=== PATIENT | female | born 1990 | race African-American/Black ===

== ENCOUNTER 2018-01-24 22:36 | Emergency (ER) | payer OTHER ==
[~2018-01-24] VITALS: Ht 160 cm; Wt 54.4 kg
--- NOTE | ~2018-01-24 | EKG ---
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
[~2018-01-24 22:36] MED LIST: MOBIC15 MG PO
[2018-01-24 23:48] LABS: URINE BILIRUBIN NEGATIVE (Negative); URINE BLOOD NEGATIVE (Negative); URINE CLARITY CLEAR; URINE COLOR YELLOW; URINE GLUCOSE-RANDOM* NEGATIVE (Negative); URINE KETONES NEGATIVE (Negative); URINE LEUKOCYTES-REFLEX NEGATIVE (Negative); URINE NITRITE-REFLEX NEGATIVE (Negative); URINE PROTEIN (DIPSTICK) NEGATIVE (Negative); URINE UROBILINOGEN 0.2 E.U./dl (0.2-1.0)
[2018-01-24 23:49] LABS: HEMATOCRIT 22.5 % (37.0-47.0); MCHC 31.1 g/dL (28.0-37.0); MCV 64.2 fL (80.0-100.0); PLATELET COUNT 337 thou/uL (150-400); RBC 3.51 mil/uL (4.20-5.00); RDW 17.5 % (10.5-14.5)
[2018-01-24 23:56] LABS: AMP/METHAMP Negative (Negative); BARBITURATES Negative (Negative); BENZODIAZEPINES Negative (Negative); COCAINE Negative (Negative); METHADONE Negative (Negative); OPIATES Negative (Negative); PCP Negative (Negative)
[2018-01-24 23:58] LABS: ANION GAP 10 mmol/L (7-16); BUN 15 mg/dL (7-18); CALCIUM 9.4 mg/dL (8.5-10.1); CHLORIDE 105 mmol/L (98-107); CO2 23 mmol/L (21-32); CREATININE 0.9 mg/dL (0.6-1.0); GLUCOSE 101 mg/dL (74-106); POTASSIUM 3.7 mmol/L (3.5-5.1); SODIUM 138 mmol/L (136-145)
[2018-01-25 00:03] LABS: APTT 22.4 Seconds (24.5-32.8); INR 1.1; PROTIME 10.5 Seconds (9.3-11.4)
[2018-01-25 00:07] LABS: ALBUMIN 3.6 g/dL (3.4-5.0); SGOT 18 U/L (15-37); SGPT 16 U/L (30-65); TOTAL BILIRUBIN 0.3 mg/dL (<0.1-1.0); TOTAL PROTEIN 7.3 g/dL (6.4-8.2); TROPONIN-I < 0.04 ng/mL (<0.06)
[2018-01-25 00:24] LABS: ABSOLUTE NEUTROPHILS 3.6 thou/uL (1.4-8.2); PLATELET ESTIMATE NORMAL
[2018-01-25 00:25] LABS: ANISOCYTOSIS 2+; HYPOCHROMASIA 2+; MICROCYTES 2+
[2018-01-25 01:21] VITALS: BP 117/68
== END 2018-01-25 01:23 | disposition home or self-care (01) ==
LOC: ER 22:36
PROVIDERS: Emergency Medicine
DX: R20.2 Paresthesia of skin (principal); R51 Headache; D64.9 Anemia, unspecified; Z88.6 Allergy status to analgesic agent

== ENCOUNTER 2018-08-14 16:58 | Emergency (ER) | payer OTHER ==
[~2018-08-14] VITALS: Ht 160 cm; Wt 58.1 kg
[2018-08-14] MEDS ORDERED: TESSALON PERLE100 MG PO (18:11)
[2018-08-14 18:20] VITALS: BP 98/65
== END 2018-08-14 18:20 | disposition home or self-care (01) ==
LOC: ER 16:58
DX: J06.9 Acute upper respiratory infection, unspecified (principal); Z88.5 Allergy status to narcotic agent

== ENCOUNTER 2019-01-07 21:11 | Emergency (ER) | payer OTHER ==
[~2019-01-07] VITALS: Ht 160 cm; Wt 57.1 kg
[~2019-01-07 21:11] MED LIST changes: +TESSALON PERLE100 MG PO
[2019-01-07] MEDS ORDERED: MOBIC7.5 MG PO (21:38)
[2019-01-07 22:05] VITALS: BP 118/82
== END 2019-01-07 22:05 | disposition home or self-care (01) ==
LOC: ER 21:11
DX: J02.0 Streptococcal pharyngitis (principal); Z88.5 Allergy status to narcotic agent